=== PATIENT | male | born 1995 | race Caucasian/White ===

== ENCOUNTER 2018-10-26 10:26 | Emergency (ER) | END 2018-10-26 10:57 | disposition home or self-care (01) ==

== ENCOUNTER 2019-01-09 03:03 | Emergency (ER) | payer MEDICAID ==
[~2019-01-09] VITALS: Ht 175.3 cm; Wt 99.2 kg
[~2019-01-09 03:03] MED LIST: METF-849 PO
[2019-01-09 03:13] VITALS: Ht 175.3 cm; Wt 99.2 kg
--- NOTE | 2019-01-09 04:30 | ERD ---
ER Documentation Chief Complaint Chief Complaint SOB HPI The patient is a 23-year-old male, presenting to the ER because of dyspnea around 10 PM yesterday, denies any chest pain, fever, chills, neck pain, abdominal pain, vomiting. He smokes and drinks socially, denies illicit drug Past medical history: Diabetes mellitus Past surgical history: None ROS All systems reviewed and are negative except as per history of present illness. Medications Home Meds Active Scripts Metformin* (Glucophage*) 500 Mg Tab, 500 MG PO BID, #60 TAB Prov:MARTHA STAUFFER PA-C 10/26/18 Allergies Allergies: Coded Allergies: No Known Allergy (Unverified , 10/26/18) PMhx/Soc Hx Miscellaneous Medical Probl: Yes (DM) Hx Alcohol Use: No Hx Substance Use: No Hx Tobacco Use: No Physical Exam Vitals Vital Signs Date Temp Pulse Resp B/P (MAP) Pulse Ox O2 O2 Flow FiO2 Time Delivery Rate 01/09/19 99.2 87 16 137/89 99 03:13 (105) Physical Exam Const: No acute distress. Head: Atraumatic. Eyes: Normal Conjunctiva. ENT: Normal External Ears, Nose and Mouth. Neck: Full range of motion. No meningismus. Resp: Clear to auscultation bilaterally. Cardio: Regular rate and rhythm. Abd: Soft, non distended, normal bowel sounds, non tender. Skin: No petechiae or rashes. Back: No midline or flank tenderness. Ext: No cyanosis, or edema. Neur: Awake and alert. No focal deficit Psych: Normal Mood and Affect. Result Diagram: 01/09/19 0455 01/09/19 0455 Results 24 hrs Laboratory Tests Test 01/09/19 04:55 White Blood Count 6.8 10^3/ul Red Blood Count 5.63 10^6/ul Hemoglobin 16.4 g/dl Hematocrit 46.8 % Mean Corpuscular Volume 83.1 fl Mean Corpuscular Hemoglobin 29.1 pg Mean Corpuscular Hemoglobin Concent 35.0 g/dl Red Cell Distribution Width 12.3 % Platelet Count 281 10^3/UL Mean Platelet Volume 10.1 fl Immature Granulocytes % 0.300 % Neutrophils % 56.9 % Lymphocytes % 31.7 % Monocytes % 8.8 % Eosinophils % 2.2 % Basophils % 0.1 % Nucleated Red Blood Cells % 0.0 /100WBC Immature Granulocytes # 0.020 10^3/ul Neutrophils # 3.9 10^3/ul Lymphocytes # 2.2 10^3/ul Monocytes # 0.6 10^3/ul Eosinophils # 0.2 10^3/ul Basophils # 0.0 10^3/ul Nucleated Red Blood Cells # 0.0 10^3/ul D-Dimer 220.00 ng/ml D-Dimer Comment Sodium Level 142 mmol/L Potassium Level 4.1 mmol/L Chloride Level 100 mmol/L Carbon Dioxide Level 30 mmol/L Anion Gap 12 Blood Urea Nitrogen 10 mg/dl Creatinine 0.63 mg/dl Est Glomerular Filtrat Rate mL/min > 60 mL/min Glucose Level 211 mg/dl Calcium Level 10.0 mg/dl Troponin I < 0.012 ng/ml Procedures/[place] [id number] Radiology Main Line: [phone] DIAGNOSTIC IMAGING REPORT Patient: RONN FRANCIS : 1995 Age: 23 Sex: M MR #: [id number] DOS: 01/09/19 0434 Ordering MD: EVAN ESPINOSA MD Location: E/R Room/Bed: PROCEDURE: CHEST - 1 VIEW CLINICAL INDICATION: 23-year-old male with chest pain. TECHNIQUE: A single frontal AP portable view of the chest was performed. The images were reviewed on a PACS workstation. COMPARISON: None. FINDINGS: The cardiomediastinal silhouette has a normal appearance. There is no evidence for an infiltrate. The pulmonary vascularity is within normal limits. There is no evidence for pneumothorax or pneumomediastinum. The osseous structures are intact. IMPRESSION: No evidence for active cardiopulmonary disease. .Hunter Esparza MD, Date Time Electronically viewed and signed by .Hunter Esparza MD, MD on 01/09/2019 05:10 .M/ CC: EVAN ESPINSOA MD [phone] EKG: Read by emergency physician Rate/Rhythm: Normal Sinus Rhythm 77 beats/min QRS, ST, T-waves: No ST elevation, no T inversion Impression: Normal EKG MEDICAL MAKING DECISION: The patient is a 23-year-old male, presenting with acute dyspnea of unclear etiology, is stable for outpatient follow-up The differential diagnoses considered include but are not limited to asthma, COPD, pneumonia, pulmonary embolus, pleural effusion, congestive heart failure. Departure Diagnosis: Primary Impression: Dyspnea Condition: Good Comments The patient's blood pressure was elevated (>120/80) but appears stable without evidence of hypertension emergency or urgency. The patient was counseled about the risks of hypertension and urged to pursue outpatient monitoring and therapy within a week with their primary care physician. Disclaimer: Inadvertent spelling and grammatical errors are likely due to EHR/dictation software use and do not reflect on the overall quality of patient care. Also, please note that the electronic time recorded on this note does not necessarily reflect the actual time of the patient encounter. EVAN ESPINOSA MD Jan 09, 2019 04:30
[2019-01-09 07:10] VITALS: BP 129/86; PULSE 76; RESP 16
== END 2019-01-09 07:10 | disposition home or self-care (01) ==
LOC: E/R 03:03
DX: R06.00 Dyspnea, unspecified (principal); E11.9 Type 2 diabetes mellitus without complications; Z79.84 Long term (current) use of oral hypoglycemic drugs
CPT/HCPCS: 36415; 71045; 80048; 84484; 85025; 85378; 93005; Z7502; Z7610